=== PATIENT | female | born 1965 ===

== ENCOUNTER 2016-09-09 19:52 | Emergency (ER) | payer OTHER ==
[2016-09-09 19:53] VITALS: BMI 107.6
--- NOTE | 2016-09-09 20:55 | C.PDOC ---
History Of Present Illness Patient presents to the ER with a complaint of a dull, aching abdominal pain and rectal bleeding. Patient has a Hx of hemorrhoids. Denies nausea, vomiting, fever or chills. Time Seen by Provider: 09/09/16 20:55 Chief Complaint (Nursing): Abdominal Pain History Per: Patient History/Exam Limitations: no limitations Onset/Duration Of Symptoms: Hrs Current Symptoms Are (Timing): Still Present Severity: Moderate Pain Scale Rating Of: 4 Location Of Pain/Discomfort: Diffuse Radiation Of Pain To:: None Quality Of Discomfort: Dull, Aching Associated Symptoms: Other (Rectal bleeding). denies: Fever, Chills, Nausea, Vomiting Exacerbating Factors: None Alleviating Factors: None Recent travel outside of the [place]: No Abnormal Vaginal Bleeding: No Past Medical History Reviewed: Historical Data, Nursing Documentation, Vital Signs Vital Signs: Last Vital Signs Temp 98.7 F 09/09/16 20:06 Pulse 82 09/09/16 22:10 Resp 18 09/09/16 22:10 BP 115/72 09/09/16 22:10 Pulse Ox 100 09/09/16 23:24 - Medical History PMH: Hiatal Hernia, Hypercholesterolemia (Slightly elevated but does not take med) Surgical History: Appendectomy, Cholecystectomy Family History: States: No Known Family Hx - Social History Hx Tobacco Use: No Hx Alcohol Use: No Hx Substance Use: No - Immunization History Hx Tetanus Toxoid Vaccination: No Hx Influenza Vaccination: No Hx Pneumococcal Vaccination: No Review Of Systems Constitutional: Negative for: Fever, Chills Gastrointestinal: Positive for: Abdominal Pain, Other (Rectal bleed). Negative for: Nausea, Vomiting Physical Exam - Physical Exam Appears: Non-toxic Skin: Warm, Dry Oral Mucosa: Moist Chest: Symmetrical, No Tenderness Cardiovascular: Rhythm Regular, No Murmur Respiratory: No Rales, No Rhonchi, No Wheezing Gastrointestinal/Abdominal: Soft, Tenderness (Mild mid epigastric), No Guarding , No Rebound Rectal: Hemorrhoids (Muliple large nonthrombosed, with scant amount of blood on one) Neurological/Psych: Oriented x3 ED Course And Treatment - Laboratory Results Result Diagrams: 09/09/16 22:00 09/09/16 22:00 O2 Sat by Pulse Oximetry: 100 (Room air) Pulse Ox Interpretation: Normal Progress Note: Morphine, zofran, protonix and IV fluids administered. Reevaluation Time: 00:32 Reassessment Condition: Improved Disposition Counseled Patient/Family Regarding: Studies Performed, Diagnosis, Need For Followup, Rx Given - Disposition Referrals: Cami Plata MD [Staff Provider] - Disposition: HOME/ ROUTINE Disposition Time: 20:55 Condition: FAIR Prescriptions: Hydrocortisone 2.5% (Rectal) [Anusol-HC] 30 applic NM BID #1 tube Polyethylene Glycol 3350 [Miralax] 17 gm PO DAILY #270 ml Instructions: Rectal Bleeding (DC), Hemorrhoids (ED) - Clinical Impression Clinical Impression: Abdominal pain, Hemorrhoids - Scribe Statement The provider has reviewed the documentation as recorded by the Scribe Charels Bolanos All medical record entries made by the Scribe were at my direction and personally dictated by me. I have reviewed the chart and agree that the record accurately reflects my personal performance of the history, physical exam, medical decision making, and the department course for this patient. I have also personally directed, reviewed, and agree with the discharge instructions and disposition.
[2016-09-09] MEDS ORDERED: Sodium Chloride 0.9% 1,000 ML IV ONE (21:35)
[2016-09-09 22:04] LABS: BASO % 0.3 % (0.0-2.0); EOS # 0.3 K/uL (0.0-0.7); EOS % 4.2 % (0.0-4.0); HEMATOCRIT 36.2 % (34.0-47.0); LYMPH # 3.1 K/uL (1.0-4.3); LYMPH % 45.5 % (20.0-40.0); MEAN CELL VOLUME 87.5 fL (81.0-99.0); MEAN CORPUSCULAR HEMOGLOBIN 29.6 pg (27.0-31.0); MEAN CORPUSCULAR HGB CONC 33.8 g/dL (33.0-37.0); MEAN PLATELET VOLUME 6.8 fL (7.2-11.7); MONO # 0.5 K/uL (0.0-0.8); MONO % 7.1 % (0.0-10.0); NRBC % 0.1 % (0.0-2.0); RED CELL DISTRIBUTION WIDTH 13.1 % (11.5-14.5); WHITE BLOOD COUNT 6.8 K/uL (4.8-10.8)
[2016-09-09] MEDS ORDERED: Sodium Chloride 0.9% 1,000 ML ONE (22:05)
[2016-09-09 22:07] LABS: RBC URINE 2 /hpf (0-3); URINE BACTERIA RARE (<OCC); URINE BILIRUBIN NEGATIVE (NEGATIVE); URINE BLOOD NEGATIVE (NEGATIVE); URINE COLOR Yellow (YELLOW); URINE GLUCOSE (UA) NORMAL (Normal); URINE KETONE NEGATIVE (NEGATIVE); URINE LEUKOCYTE ESTERASE NEG Leu/uL (Negative); URINE PROTEIN NEGATIVE (NEGATIVE); URINE UROBILINOGEN NORMAL mg/dL (0.2-1.0); WBC URINE 2 /hpf (0-5)
[2016-09-09 22:13] LABS: CHLORIDE 101 mmol/L (98-107)
[2016-09-09 22:14] LABS: SODIUM 137 mmol/L (132-148)
[2016-09-09 22:16] LABS: ALB/GLOB RATIO 1.3 (1.0-2.1); AST/SGOT 22 U/L (14-36); BILIRUBIN,TOTAL 0.6 mg/dL (0.2-1.3); CARBON DIOXIDE 25 mmol/L (22-30); GFR AFRICAN-AMERICAN > 60; TOTAL PROTEIN 6.9 g/dL (6.3-8.3)
[2016-09-09 22:17] LABS: ALKALINE PHOSPHATASE 67 U/L (38-126); ALT/SGPT 40 U/L (9-52); BLOOD UREA NITROGEN 12 mg/dL (7-17); CALCIUM 8.7 mg/dl (8.6-10.4); GLUCOSE,RANDOM 85 mg/dL (65-105); INR 1.2
[2016-09-09 23:12] VITALS: RESP 18
[2016-09-10 01:10] VITALS: BP 102/61; PULSE 68; TEMP 97.7; O2SAT 98
== END 2016-09-10 01:10 | disposition home or self-care (01) ==
LOC: C.ER 19:52
DX: R10.9 Unspecified abdominal pain (principal); K64.9 Unspecified hemorrhoids
CPT/HCPCS: 80053; 81001; 83690; 84703; 85025; 85610; 85730; 96361; 96374; 96375; 99284; C9113; J2270; J2405; J7040

== ENCOUNTER 2016-12-24 23:20 | Emergency (ER) | payer OTHER ==
[2016-12-24 23:21] VITALS: BMI 107.6
[2016-12-24 23:47] VITALS: RESP 16
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
[2016-12-25 01:16] LABS: RBC URINE 1 /hpf (0-3); URINE BILIRUBIN NEGATIVE (NEGATIVE); URINE BLOOD NEGATIVE (NEGATIVE); URINE COLOR Yellow (YELLOW); URINE GLUCOSE (UA) NORMAL (Normal); URINE KETONE NEGATIVE (NEGATIVE); URINE LEUKOCYTE ESTERASE TRACE Leu/uL (Negative); URINE PROTEIN NEGATIVE (NEGATIVE); URINE UROBILINOGEN NORMAL mg/dL (0.2-1.0); WBC URINE 2 /hpf (0-5)
[2016-12-25 01:17] LABS: CHLORIDE 101 mmol/L (98-107); POTASSIUM 3.5 mmol/L (3.6-5.2); SODIUM 138 mmol/L (132-148)
[2016-12-25 01:20] LABS: ALB/GLOB RATIO 1.2 (1.0-2.1); ALKALINE PHOSPHATASE 61 U/L (38-126); ALT/SGPT 43 U/L (9-52); AST/SGOT 23 U/L (14-36); BILIRUBIN,TOTAL 0.4 mg/dL (0.2-1.3); BLOOD UREA NITROGEN 13 mg/dL (7-17); CARBON DIOXIDE 26 mmol/L (22-30); GFR AFRICAN-AMERICAN > 60; GLUCOSE,RANDOM 121 mg/dL (65-105); TOTAL PROTEIN 7.5 g/dL (6.3-8.3)
[2016-12-25 01:21] LABS: BASO % 0.5 % (0.0-2.0); CALCIUM 9.6 mg/dl (8.6-10.4); EOS # 0.2 K/uL (0.0-0.7); EOS % 2.6 % (0.0-4.0); HEMATOCRIT 35.4 % (34.0-47.0); LYMPH # 2.6 K/uL (1.0-4.3); LYMPH % 41.6 % (20.0-40.0); MEAN CELL VOLUME 87.6 fL (81.0-99.0); MEAN CORPUSCULAR HGB CONC 35.3 g/dL (33.0-37.0); MEAN PLATELET VOLUME 6.8 fL (7.2-11.7); MONO # 0.6 K/uL (0.0-0.8); MONO % 9.6 % (0.0-10.0); RED CELL DISTRIBUTION WIDTH 12.9 % (11.5-14.5); WHITE BLOOD COUNT 6.3 K/uL (4.8-10.8)
[2016-12-25 02:22] VITALS: BP 97/63; PULSE 74; TEMP 98; O2SAT 98
--- NOTE | 2016-12-25 07:53 | RAD ---
PROCEDURE: CHEST RADIOGRAPH, 1 VIEW HISTORY: palpitations COMPARISON: 11/29/2014 FINDINGS: LUNGS: Clear. PLEURA: No pneumothorax or pleural fluid seen. CARDIOVASCULAR: Normal. OSSEOUS STRUCTURES: No significant abnormalities. VISUALIZED UPPER ABDOMEN: Normal. OTHER FINDINGS: None. IMPRESSION: No active disease.
--- NOTE | 2016-12-25 12:22 | CARD ---
APPROVED REPORT EKG Measurement Heart [id number] <Conclusion> Normal sinus rhythm Possible Left atrial enlargement Borderline ECG
== END 2016-12-25 02:30 | disposition home or self-care (01) ==
LOC: C.ER 23:20
DX: R00.2 Palpitations (principal); F41.9 Anxiety disorder, unspecified; E78.00 Pure hypercholesterolemia, unspecified

== ENCOUNTER 2017-02-24 23:47 | Emergency (ER) | payer OTHER ==
[2017-02-24 23:47] VITALS: BMI 107.6
[2017-02-24 23:59] VITALS: O2SAT 98
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
[2017-02-25 01:42] VITALS: BP 94/57; PULSE 89; RESP 18; TEMP 97.7
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
== END 2017-02-25 01:42 | disposition home or self-care (01) ==
LOC: C.ER 23:47
DX: T14.8XXA Other injury of unspecified body region, initial encounter (principal); V89.2XXA Person injured in unspecified motor-vehicle accident, traffic, initial encounter

== ENCOUNTER 2018-07-02 19:03 | Emergency (ER) | payer OTHER ==
[2018-07-02 19:03] VITALS: BMI 107.6
[2018-07-02] MEDS ORDERED: Sodium Chloride 0.9% 1,000 ML IV ONE (19:21)
--- NOTE | 2018-07-02 19:21 | C.PDOC ---
History Of Present Illness Patient presents to the ED c/o abdominal pain associated with nausea, diarrhea, fever and chills that started last night. Patient denies rash, cough, congestion, vomit, back pain, dysuria, recent travel, sick contacts. Time Seen by Provider: 07/02/18 19:21 Chief Complaint (Nursing): Abdominal Pain History Per: Patient History/Exam Limitations: no limitations Onset/Duration Of Symptoms: Days (1) Current Symptoms Are (Timing): Still Present Location Of Pain/Discomfort: Diffuse Radiation Of Pain To:: None Quality Of Discomfort: "Pain" Associated Symptoms: Fever, Chills, Nausea, Diarrhea. denies: Constipation Recent travel outside of the [place]: No Additional History Per: Patient Past Medical History Reviewed: Historical Data, Nursing Documentation, Vital Signs Vital Signs: Last Vital Signs Temp 101.8 F H 07/02/18 19:12 Pulse 108 H 07/02/18 19:12 Resp 18 07/02/18 19:12 BP 121/64 07/02/18 19:12 Pulse Ox 98 07/02/18 19:12 - Medical History PMH: Hiatal Hernia, Hypercholesterolemia (Slightly elevated but does not take med) Denies: Chronic Kidney Disease Surgical History: Appendectomy, Cholecystectomy Family History: States: Unknown Family Hx - Social History Hx Tobacco Use: No Hx Alcohol Use: No Hx Substance Use: No - Immunization History Hx Tetanus Toxoid Vaccination: No Hx Influenza Vaccination: Yes Hx Pneumococcal Vaccination: No Review Of Systems Constitutional: Positive for: Fever, Chills Cardiovascular: Negative for: Chest Pain, Palpitations Respiratory: Negative for: Cough, Shortness of Breath Gastrointestinal: Positive for: Nausea, Abdominal Pain, Diarrhea. Negative for: Vomiting Genitourinary: Negative for: Dysuria Musculoskeletal: Negative for: Back Pain Skin: Negative for: Rash Neurological: Negative for: Weakness, Numbness Physical Exam - Physical Exam Appears: Non-toxic, No Acute Distress Skin: Warm, Dry Head: Normacephalic Eye(s): bilateral: Normal Inspection Oral Mucosa: Moist Neck: Supple Chest: Symmetrical Cardiovascular: Rhythm Regular Respiratory: No Rales, No Rhonchi, No Wheezing Gastrointestinal/Abdominal: Soft, Tenderness (diffuse), No Guarding, No Rebound Back: No CVA Tenderness Extremity: Bilateral: Atraumatic, Normal Color And Temperature, Normal ROM Neurological/Psych: Oriented x3, Normal Speech, Normal Cognition Gait: Steady ED Course And Treatment - Laboratory Results Result Diagrams: 07/02/18 19:45 07/02/18 19:45 ECG: Interpreted By Me, Viewed By Me ECG Rhythm: Sinus Rhythm (85), Nonspecific Changes O2 Sat by Pulse Oximetry: 98 (ON RA) Pulse Ox Interpretation: Normal - CT Scan/US CT abd/pelvis Other Rad Studies (CT/US): Read By Radiologist, Radiology Report Reviewed CT/US Interpretation: CT SCAN OF THE ABDOMEN AND PELVIS WITH CONTRAST. CLINICAL HISTORY: Abdominal pain. TECHNIQUE: Multiple axial and coronal CT images were obtained through the abdomen and pelvis after administration of intravenous contrast material. COMPARISON: 07/06/2015. COMMENTS: Uncomplicated colonic diverticulosis. The liver is of decreased attenuation without mass or defect. There is no intra or extrahepatic biliary ductal dilatation. The spleen is normal. The gallbladder is surgically absent. The pancreas is of normal contour and attenuation characteristics. There is no evidence of adrenal mass. Both kidneys demonstrate prompt and equal nephrograms. The kidneys are normal in size, shape and configuration. There is no evidence of renal or ureteral mass. No renal or ureteral calculi are identified. There is no hydroureter or hydronephrosis. No evidence for appendicitis. There is no bowel wall thickening. No evidence for small or large bowel obstruction. There is no evidence of abdominal ascites or lymphadenopathy. There is no evidence of intrinsic or extrinsic bladder mass. There is no pelvic ascites or lymphade nopathy. Images of the lung bases show no evidence of pleural or parenchymal mass. There are no pleural effusions. The bony structures are free of lytic or blastic lesions. IMPRESSION: No evidence of acute abdominal or pelvic pathology. Hepatic steatosis. Cholecystectomy. Thank you for your kind referral of this patient. . Electronically signed on Jul 03, 2018 12:34:34 AM EDT by: Berta Temple M.D., Certified by ABR, MSK, Neuroradiology Progress Note: Plan: - VBG. - Labs. - Pepcid 20 mg IVP. - IV fluids. - UA Reevaluation Time: 00:40 Reassessment Condition: Improved Disposition Counseled Patient/Family Regarding: Studies Performed, Diagnosis, Need For Followup, Rx Given - Disposition Referrals: [facility] [Outside] [facility] [Outside] Disposition: HOME/ ROUTINE Disposition Time: 19:21 Condition: FAIR Additional Instructions: Por favor regrese si los sntomas recurren. Instructions: Acute Abdomen (Belly Pain), Adult (DC) Forms: [employer] (Belgian) Print Language: NIGERIAN - Clinical Impression Clinical Impression: Abdominal pain - Scribe Statement The provider has reviewed the documentation as recorded by the Scribe Jayy Jones All medical record entries made by the Scribe were at my direction and personally dictated by me. I have reviewed the chart and agree that the record accurately reflects my personal performance of the history, physical exam, medical decision making, and the department course for this patient. I have also personally directed, reviewed, and agree with the discharge instructions and disposition.
[2018-07-02] MEDS ORDERED: Sodium Chloride 0.9% 1,000 ML ONE (19:46)
[2018-07-02 19:50] LABS: BASO % 0.3 % (0.0-2.0); EOS % 0.2 % (0.0-4.0); HEMOGLOBIN 12.8 g/dL (11.0-16.0); LYMPH # 1.5 K/uL (1.0-4.3); LYMPH % 12.2 % (20.0-40.0); MEAN CELL VOLUME 88.6 fL (81.0-99.0); MEAN CORPUSCULAR HEMOGLOBIN 30.4 pg (27.0-31.0); MEAN CORPUSCULAR HGB CONC 34.3 g/dL (33.0-37.0); MONO # 0.8 K/uL (0.0-0.8); MONO % 6.7 % (0.0-10.0); NEUT # 9.7 K/uL (1.8-7.0); NEUT % 80.6 % (50.0-75.0); NRBC % 0.1 % (0.0-2.0); RBC 4.21 Mil/uL (3.80-5.20)
[2018-07-02 19:53] LABS: WHITE BLOOD COUNT 12.1 K/uL (4.8-10.8)
[2018-07-02 19:57] LABS: VENOUS BLOOD GAS BASE EXCESS -0.3 mmol/L (0.0-2.0); VENOUS BLOOD GAS PCO2 38 mmHg (40-60); VENOUS BLOOD GAS PO2 35 mm/Hg (30-55); VENOUS BLOOD PH 7.41 (7.32-7.43)
[2018-07-02 19:59] LABS: SQUAMOUS EPITHIAL 3 /hpf (0-5); URINE BILIRUBIN NEGATIVE (NEGATIVE); URINE BLOOD NEGATIVE (NEGATIVE); URINE CLARITY Hazy (Clear); URINE COLOR Yellow (YELLOW); URINE GLUCOSE (UA) NORMAL (Normal); URINE LEUKOCYTE ESTERASE NEG Leu/uL (Negative); URINE PROTEIN 1+ mg/dL (NEGATIVE); URINE UROBILINOGEN NORMAL mg/dL (0.2-1.0)
[2018-07-02 20:00] LABS: HCG,QUALITATIVE URINE NEGATIVE (NEGATIVE)
[2018-07-02 20:04] LABS: ALB/GLOB RATIO 1.6 (1.0-2.1); ALBUMIN 4.5 g/dL (3.5-5.0); ALT/SGPT 54 U/L (9-52); AST/SGOT 55 U/L (14-36); BLOOD UREA NITROGEN 14 mg/dL (7-17); CALCIUM 9.6 mg/dl (8.6-10.4); GFR NON-AFRICAN AMERICAN > 60; LIPASE 73 U/L (23-300)
[2018-07-02 20:19] LABS: INR 1.3; PROTHROMBIN TIME 13.7 SECONDS (9.7-12.2)
[2018-07-02] MEDS ORDERED: Iodixanol 320 MG/ML 100 ML BOTTLE IV ONE (21:16)
[2018-07-02 21:32] VITALS: RESP 20
[2018-07-03 00:12] VITALS: BP 106/58; PULSE 97; TEMP 98.4
[2018-07-03 00:37] VITALS: O2SAT 98
--- NOTE | 2018-07-03 11:46 | CT ---
CT abdomen and pelvis HISTORY: Abdominal pain. COMPARISON: CT dated 07/06/2015 TECHNIQUE: Multiple contiguous axial images were performed through the abdomen and pelvis with the use of intravenous contrast. Subsequently, sagittal and coronal re-formatted images were obtained. This CT exam was performed using one or more of the following dose reduction techniques: Automated exposure control, adjustment of the mA and/or kV according to patient size, and/or use of iterative reconstruction technique. Findings: Scattered atelectasis at the lung bases. No pleural or pericardial effusion. Fatty infiltration of the liver. 1.1 centimeter lobe rounded low-attenuation lesion seen within the periphery of the left hepatic lobe demonstrating a Hounsfield unit attenuation of 8 suggestive for a possible cyst. Prior cholecystectomy. Postsurgical changes of the common bile duct. Spleen is preserved. Splenule. Adrenal glands are preserved. Pancreas is preserved. Mild thickening versus underdistention of the distal stomach. Clinical correlation. Right kidney: No calculi or hydronephrosis. Left Kidney: No calculi or hydronephrosis. Urinary bladder is preserved. Heterogeneous uterus. Evaluation of the lower abdominal bowel demonstrates some underdistention and or mild thickening of the sigmoid colon. In addition, there appears to be some underdistention and or mild thickening of the mid transverse colon. Clinical correlation. Moderate fecal retention in the colon. Appendix not well visualized. No findings to suggest acute appendicitis. Few shotty para-aortic and inguinal lymph nodes. Few shotty mesenteric lymph nodes. Degenerative changes in the spine. Impression: 1. Few scattered areas of underdistention and or mild thickening throughout the GI tract including the distal stomach, mid transverse colon, and sigmoid colon. These findings are nonspecific. Clinical correlation. 2. Fatty infiltration of the liver. Additional findings as above. A preliminary report was generated at 12:34 a.m. on 07/03/[address] Berta Temple from [facility]. This case was placed in the PA review folder.
--- NOTE | 2018-07-06 15:35 | CARD ---
APPROVED REPORT Date of service: 07/03/2018 EKG Measurement Heart [id number] <Conclusion> Normal sinus rhythm Nonspecific T wave abnormality Abnormal ECG
== END 2018-07-03 01:32 | disposition home or self-care (01) ==
LOC: C.ER 19:03
DX: R10.9 Unspecified abdominal pain (principal)
CPT/HCPCS: 74177; 80053; 81001; 82803; 83690; 84703; 85025; 85610; 85730; 96361; 96374; 96375; 99285; J1885; J7030; Q9967